=== PATIENT | male | born 2005 | race Caucasian/White ===

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

== ENCOUNTER 2024-11-16 20:57 | Emergency (ER) | payer BC, SELFPAY ==
[2024-11-16 21:04] VITALS: BP 133/75; PULSE 89; RESP 17; TEMP 36.8; O2SAT 98; BMI 23.0
--- OUTSIDE RECORDS SUMMARY | 2024-11-16 21:06 | XMS_ITS | Patient Health Record ---
Author Organization [facility] Address [address] [place] [address] Care Team Providers Care Flexographic Press Set Up Operator Name Role Phone Kiran Johnson Primary Care Provider Allergies No Known Allergies Reason For Referral No Information Medications Medication SIG (Take, Route, Frequency, Duration) Notes Start Date End Date Status oxyCODONE HCl 10 MG Tablet 1 tablet as n eeded Orally every 8 hrs; Duration: 2 days 08/29/2021 Active Social History Sex Assigned At : Social History Observation Description Sex Assigned At Male Plan Of Treatment No Information Insurance Providers Payer Name Payer Address Payer Phone Subscriber Number Group Number Insured Name Patient Relationship to Insured Coverage Start Date Coverage End Date Home [facility] [address] [facility] [place] [phone] [id number] Andre Estes Self - patient is the insured [employer] [address] [address] [place] [phone] [id number] Andre Estes Self - patient is the insured
--- NOTE | 2024-11-16 21:20 | XRR_ITS ---
PROCEDURE INFORMATION: Exam: XR Left Foot Exam date and time: 11/16/2024 9:36 PM Age: 19 years old Clinical indication: Injury or trauma; Other: Dropped 55 gal drum on foot; Blunt trauma; Left; Additional info: Dropped 50 lbs on foot TECHNIQUE: Imaging protocol: Radiologic exam of the left foot. Views: 3 or more views. COMPARISON: No relevant prior studies available. FINDINGS: Bones/joints: No acute fracture or dislocation of the left foot. Soft tissues: Unremarkable. XR/XR foot LT min 3V* [id number] IMPRESSION: No acute fracture or dislocation of the left foot.
--- NOTE | 2024-11-16 22:08 | W.ED.EXTPRO ---
HPI - Extremity Problem General: Chief complaint: Extremity Injury, Lower Stated complaint: Lt foot, hurting posssibly broken Time Seen by Provider: 11/16/24 21:09 Source: patient Mode of arrival: ambulatory Limitations: no limitations History of Present Illness: Patient is a 19-year-old male who presents the emergency department complaining of left foot pain. He states that he dropped a large barrel of antifreeze on his foot, is having a lot of pressure underneath his great toe. Has been ambulatory, but states he thinks his foot is broken. No other injuries. MD Complaint: extremity pain Onset (ago): hour(s) Pain Consistency: constant Location: left and toe (Great toe) Quality: other (Pressure under nail) Associated symptoms: Deny chest pain, fever(s) or rash Related Data Previous Rx's ?Medication ?Instructions ?Recorded Fast Form [facility] #1 ea 07/04/20 Allergies Allergy/AdvReac Type Severity Reaction Status Date / Time No Known Allergies Allergy Verified 07/25/20 12:57 Review of Systems General: Reports: 10 or more systems reviewed and unremarkable except in HPI and below Const: Denies: fever(s) or chills Card: Denies: chest pain Resp: Denies: dyspnea or productive cough GI: Denies: abdominal pain, nausea, vomiting or diarrhea : Denies: flank pain Musc: Reports: extremity pain (Left great toe); Denies: neck pain, back pain, extremity swelling, joint pain, joint swelling, joint redness, joint warmth, limited range of motion or muscle weakness Skin/Breast: Denies: rash Neuro: Denies: headache(s), numbness in extremities or weakness in extremities Physical Exam Const: COMMON NORMALS: no acute distress, patient oriented x3, no limitations, healthy appearing, alert and well nourished HENMT: COMMON NORMALS: normocephalic and atraumatic HEAD & SCALP: normocephalic and atraumatic Neck/C-Spine: COMMON NORMALS: full ROM, supple and no meningeal signs Resp: COMMON NORMALS: normal respiratory effort, No use of accessory muscles and clear to auscultation bilaterally AUSCULTATION: clear to auscultation bilaterally Cardio: COMMON NORMALS: regular rate and regular rhythm RATE: regular rate RHYTHM: regular rhythm Extremity: COMMON NORMALS: full ROM, capillary refill normal, no joint enlargement and no clubbing, cyanosis or edema NARRATIVE EXTREMITY EXAM: Subungual hematoma of left great toe. Tender to palpation of the left great toe with mild edema. Normal gait. Neuro: COMMON NORMALS: patient oriented x3, moves all extremities, no focal motor deficits and no sensory deficits noted SENSORIUM/ORIENTATION: Yes alert MENINGEAL SIGNS: Yes no meningeal signs Skin: COMMON NORMALS: no rashes or lesions noted GENERAL SKIN EXAM: no rashes or lesions noted Procedures Nail Trephination Location (toes): first digit Method of drainage: needle Procedure successful: Yes Patient tolerated procedure: well Course Vital Signs: Vital signs: Vital Signs Temperature 98.2 F 11/16/24 21:04 Pulse Rate 89 11/16/24 21:04 Respiratory Rate 17 11/16/24 21:04 Blood Pressure 133/75 11/16/24 21:04 Pulse Oximetry 98 11/16/24 21:04 Oxygen Delivery Me thod Room Air 11/16/24 21:04 MDM - Extremity (Nontraumatic) Medical Decision Making Patient presented after dropping a large object on his left great toe. On exam evidence of subungual hematoma, of which nail trephination performed here in the ED and provided the patient much relief. X-ray did not reveal any obvious fracture, discharged home with conservative measures discussed. Lab Data Radiology Impressions Foot X-Ray 11/16/24 21:20 IMPRESSION: No acute fracture or dislocation of the left foot. All radiology interpretation(s) finalized by discharge Discharge Plan Discharge Patient Disposition: Home Clinical Impression: Contusion of great toe, left Qualifiers: Encounter type: initial encounter Damage to nail status: with damage Qualified Code(s): S90.212A - Contusion of left great toe with damage to nail, initial encounter Subungual hematoma of great toe of left foot Qualifiers: Encounter type: initial encounter Qualified Code(s): S90.212A - Contusion of left great toe with damage to nail, initial encounter Condition: Stable Prescriptions: No Action (DME) Fast Form ulnar gutter See Rx Instructions .ROUTE .MEDSUPPLY Qty: 1 0RF Rx Instructions: As directed Discharge Orders: Discharge ED (Routine); Ordered 11/16/24 Ordered By: Parker Josue Referrals: El Barillas MD [Primary Care Provider, Family Practice] Patient Instructions: Patient Portal & Red Instructions Activity Restrictions/Additional Instructions: Toe Contusion Discharge Diagnosis: - Left great toe contusion (no fracture on X-ray) - Subungual hematoma, treated with nail trephination Wound Care and Monitoring: - Keep the toe clean and dry for the first 24 hours post-trephination. Afterward, gentle washing with soap and water is appropriate; avoid soaking the toe for prolonged periods. - Inspect the nail daily for signs of infection: increasing redness, warmth, swelling, purulent drainage, or worsening pain. Advise prompt follow-up if these occur. - A small dressing may be applied for comfort and protection, but occlusive dressings are not required unless there is ongoing drainage. Pain Management: - [id number] analgesics such as acetaminophen or NSAIDs are appropriate for pain control, unless contraindicated. - Elevation of the foot may help reduce swelling and discomfort in the first 48 hours. Activity and Restrictions: - Advise limited weight-bearing and avoidance of strenuous activity or sports involving the affected toe until pain and swelling have resolved, typically within several days to a week. - Return to normal activity as tolerated; gradual resumption is recommended. Expected Course and Follow-Up: - The nail may remain discolored for several weeks and may eventually shed; regrowth typically occurs over several months. - Most patients recover uneventfully with proper care; persistent pain, nail deformity, or delayed healing warrants re-evaluation. - Routine follow-up is not required unless symptoms worsen or complications develop. When to Seek Medical Attention: - Signs of infection (see above) - Increasing pain unresponsive to analgesics - New or worsening swelling, redness, or drainage - Delayed healing or nail deformity Additional Considerations: - Tetanus prophylaxis should be confirmed as up-to-date per standard trauma protocols. - No antibiotics are indicated unless there is evidence of infection. Summary of Evidence: - Nail trephination is the preferred management for subungual hematoma with an intact nail plate, with outcomes equivalent or superior to nail removal and bed repair, and lower cost and complication rates. - Conservative management is appropriate for contusions without fracture, focusing on soft tissue care and symptom control. Print Language: Egyptian Coding Level of Care Code ED Senior Manager Creative Services for Darren Moreno
== END 2024-11-16 22:55 | disposition home or self-care (01) ==
PROVIDERS: Emergency Provider Physician Assistant; PCP Family Medicine
DX: S90.212A Contusion of left great toe with damage to nail, initial encounter (principal); W20.8XXA Other cause of strike by thrown, projected or falling object, initial encounter
CPT/HCPCS: 11740; 73630; 99283